=== PATIENT | male | born 1960 | race Caucasian/White ===

== ENCOUNTER 2024-12-21 20:23 | Outpatient (REF) | payer BC, SELFPAY ==
[2024-12-21 21:54] LABS: Abs Immature Grans 0.02 10^3/uL (0.0-0.06); HCT 43.4 % (40.0-50.0); HGB 14.7 g/dL (13.5-17.5); Immature Grans % 0.2 %; MCH 31.3 pg (27.0-33.0); MCHC 33.9 % (32.0-36.0); MCV 92 fL (80-95); MPV 9.9 fL (8.0-11.0); Platelet Count 266 10^3/uL (130-400); RBC 4.70 10^6/uL (4.36-5.78); RDW 12.5 % (11.8-14.1); RDW-SD 42.5 fL; WBC 8.45 10^3/uL (4.4-10.8)
[2024-12-21 22:22] LABS: ALT 28 U/L (16-63); AST 23 U/L (15-37); Albumin 4.1 g/dL (3.4-5.0); Alkaline Phosphatase 45 U/L (46-116); Anion Gap 6.6 mmol/L (3-11); BUN 14 mg/dL (7-18); Bilirubin, Total 1.0 mg/dL (0.2-1.0); CO2 31.4 mmol/L (21.0-32.0); Calcium 9.6 mg/dL (8.5-10.1); Chloride 104 mmol/L (98-107); Estimated GFR 84.57 (mL/min/1.73m2); Glucose 103 mg/dL (74-106); Potassium 4.6 mmol/L (3.5-5.1); Sodium 142 mmol/L (136-145); TSH (W/Ref FT4) 1.13 uIU/mL (0.36-3.74); Total Protein 7.7 g/dL (6.4-8.2)
[2024-12-25 11:30] LABS: Lyme Ab w Rflx to Lyme Confirm Negative (Negative)
== END 2024-12-21 20:24 | disposition home or self-care (01) ==
LOC: LBN 20:23
PROVIDERS: Visit Provider Physician Assistant Medical
DX: R53.83 Other fatigue (principal)
CPT/HCPCS: 80053; 84443; 85025; 86618